=== PATIENT | female | born 1965 | race Caucasian/White ===

== ENCOUNTER 2018-05-02 12:57 | Emergency (ER) | payer SELFPAY ==
[~2018-05-02] VITALS: Wt 62.9 kg
[2018-05-02 13:18] VITALS: BP 118/68; PULSE 88; RESP 20
[2018-05-02] MEDS ORDERED: KETOROLAC 60 MG INJ IM STA (13:51)
[2018-05-02] MEDS ORDERED: NAPR-985 PO (13:54)
[2018-05-02] MEDS ORDERED: AMOX1TAB10 PO (13:54)
[2018-05-02] MEDS ORDERED: NPH10OT BOTH EARS (13:54)
--- NOTE | 2018-05-02 14:58 | ERD ---
ER Documentation Chief Complaint Chief Complaint bilat ear pain x5d; R>L. HPI 52 yr old female complaining of bilateral ear pain. Patient had bilateral ear pain. Patient states that she has been putting some [place] cream in her ear but does not recall the name of it. Denies any fevers. Yesterday took Tylenol but no known medication today. Has a mild runny nose and dry cough. Patient states she has been swimming a lot lately. Medical history back pain. Allergy to aspirin. Surgical history denies. Social history smokes 6 cigarettes a day. ROS All systems reviewed and are negative except as per history of present illness. Medications Home Meds Active Scripts Naproxen* (Naprosyn*) 500 Mg Tablet, 500 MG PO BID PRN for PAIN AND/OR INFLAMMATION, #30 TAB Prov:SOLEDAD ANTHONY PA-C 05/02/18 Amoxicillin/Potassium Clav (Amox-Clav 875-125 mg Tablet) 875-125 mg Tab, 1 TAB PO BID for 7 Days, #14 TAB Prov:SOLEDAD ANTHONY PA-C 05/02/18 Neomycin/Polymyxin/Hydrocort* (Cortisporin* Otic) 10 Ml Susp, 4 DROP BOTH EARS QID for 7 Days, EA Prov:SOLEDAD ANTHONY PA-C 05/02/18 Allergies Allergies: Coded Allergies: aspirin (Verified Allergy, Unknown, 05/02/18) PMhx/Soc Medical and Surgical Hx: pt denies Medical Hx, pt denies Surgical Hx Hx Alcohol Use: No Hx Substance Use: No Hx Tobacco Use: No Smoking Status: Never smoker FmHx Family History: No diabetes, No coronary disease, No other Physical Exam Vitals Vital Signs Date Temp Pulse Resp B/P (MAP) Pulse Ox O2 O2 Flow FiO2 Time Delivery Rate 05/02/18 97.7 88 20 118/68 98 13:18 (85) Physical Exam GENERAL: The patient is well-appearing, well-nourished, in no acute distress HEENT: Atraumatic. Conjunctivae are pink. Pupils equal, round, and reactive to light. There is no scleral icterus. Tympanic membranes clear bilaterally. Swelling to external ear canal. No mastoid tenderness. Oropharynx clear. CHEST: Clear to auscultation bilaterally. There are no rales, wheezes or rhonchi. HEART: Regular rate and rhythm. No murmurs, clicks, rubs or gallops. No S3 or S4. BACK: No midline or flank tenderness. Results 24 hrs Current Medications Medications Dose Sig/Leland Start Time Status Last (Trade) Ordered Route PRN Stop Time Admin Dose Reason Admin Ketorolac 60 mg ONCE STAT 05/02/18 DC 05/02/18 Tromethamine IM 13:51 13:59 (Toradol) 05/02/18 13:52 Procedures/MDM MDM: 52-year-old female presenting with ear pain. Patient has findings consist ent with otitis externa. I have low suspicion for mastoiditis. I have low suspicion for otitis media. Patient be discharged with oral medications as this has been going on for quite a while. Patient is told symptoms change or worsen to immediately return to ER. All questions answered at discharge Departure Diagnosis: Primary Impression: Otitis externa Condition: Stable Patient Instructions: External Ear Infection (Adult) Referrals: [facility] YOU HAVE RECEIVED A MEDICAL SCREENING EXAM AND THE RESULTS INDICATE THAT YOU DO NOT HAVE A CONDITION THAT REQUIRES URGENT TREATMENT IN THE EMERGENCY DEPARTMENT. FURTHER EVALUATION AND TREATMENT OF YOUR CONDITION CAN WAIT UNTIL YOU ARE SEEN IN YOUR DOCTORS OFFICE WITHIN THE NEXT 1-2 DAYS. IT IS YOUR RESPONSIBILITY TO MAKE AN APPOINTMENT FOR FOLOW-UP CARE. IF YOU HAVE A PRIMARY DOCTOR --you should call your primary doctor and schedule an appointment IF YOU DO NOT HAVE A PRIMARY DOCTOR YOU CAN CALL OUR PHYSICIAN REFERRAL HOTLINE AT IF YOU CAN NOT AFFORD TO SEE A PHYSICIAN YOU CAN CHOSE FROM THE FOLLOWING [facility] [address] [facility] [address] [facility] [address] [facility]. [facility] [address] [facility] [address] [facility]. [facility]. [address] Additional Instructions: FOLLOW UP WITH YOUR PRIMARY CARE PHYSICIAN TOMORROW.Return to this facility if you are not improving as expected. SOLEDAD ANTHONY PA-C May 02, 2018 14:58
[2018-05-03] MEDS ORDERED: NPH10OT BOTH EARS (19:23)
[2018-05-03] MEDS ORDERED: ACET1TAB40 PO (19:23)
== END 2018-05-02 14:10 | disposition home or self-care (01) ==
LOC: FTE 12:57
DX: H60.93 Unspecified otitis externa, bilateral (principal)
CPT/HCPCS: 96372; 99284; J1885

== ENCOUNTER 2018-05-03 17:53 | Emergency (ER) | payer MEDICAID ==
[~2018-05-03] VITALS: Ht 144.8 cm; Wt 63.0 kg
[~2018-05-03 17:53] MED LIST: AMOX1TAB10 PO; NAPR-985 PO; NPH10OT BOTH EARS
[2018-05-03 17:59] VITALS: Ht 144.8 cm; Wt 63.0 kg
[2018-05-03] MEDS ORDERED: CIPROFLOXACIN 500 MG TAB PO ONE (18:30)
[2018-05-03] MEDS ORDERED: HYDROCODONE/APAP (5/325) TAB PO ONE (18:30)
[2018-05-03] MEDS ORDERED: NPH10OT BOTH EARS (19:23)
[2018-05-03] MEDS ORDERED: ACET1TAB40 PO (19:23)
--- NOTE | 2018-05-03 19:26 | ERD ---
ER Documentation Chief Complaint Chief Complaint BILATERAL EAR PAIN X 7 DAYS HPI 52-year-old female presents with one-week history of bilateral ear pain and discharge. She was seen yesterday and prescribed amoxicillin but she states that she cannot afford the prescription. She denies fevers, vomiting, shortness of breath or chest pain. ROS All systems reviewed and are negative except as per history of present illness. Medications Home Meds Active Scripts Acetaminophen with Codeine (Acetaminophen-Cod #3 Tablet) 1 Each Tablet, 1 TAB PO Q6H PRN for PAIN, #10 TAB Prov:CHAPINCITO CHOE MD 05/03/18 Neomycin/Polymyxin/Hydrocort* (Cortisporin* Otic) 10 Ml Susp, 4 DROP BOTH EARS QID for 7 Days, EA Prov:CHAPINCITO CHOE MD 05/03/18 Naproxen* (Naprosyn*) 500 Mg Tablet, 500 MG PO BID PRN for PAIN AND/OR INFLAMMATION, #30 TAB Prov:SOLEDAD ANTHONY PA-C 05/02/18 Amoxicillin/Potassium Clav (Amox-Clav 875-125 mg Tablet) 875-125 mg Tab, 1 TAB PO BID for 7 Days, #14 TAB Prov:SOLEDAD ANTHONY PA-C 05/02/18 Neomycin/Polymyxin/Hydrocort* (Cortisporin* Otic) 10 Ml Susp, 4 DROP BOTH EARS QID for 7 Days, EA Prov:SOLEDAD ANTHONY PA-C 05/02/18 Allergies Allergies: Coded Allergies: aspirin (Verified Allergy, Unknown, 05/02/18) PMhx/Soc Medical and Surgical Hx: pt denies Medical Hx History of Surgery: Yes (OPEN HEART SX) Anesthesia Reaction: No Hx Neurological Disorder: No Hx Respiratory Disorders: No Hx Cardiac Disorders: No Hx Psychiatric Problems: No Hx Miscellaneous Medical Probl: No Hx Alcohol Use: No Hx Substance Use: No Hx Tobacco Use: No Smoking Status: Former smoker FmHx Family History: No diabetes, No coronary disease, No other Physical Exam Vitals Vital Signs Date Temp Pulse Resp B/P (MAP) Pulse Ox O2 O2 Flow FiO2 Time Delivery Rate 05/03/18 99.9 97 18 125/72 99 17:59 (89) Physical Exam Const: No acute distress Head: Atraumatic Eyes: Normal Conjunctiva ENT: Normal External Ears, Nose and Mouth. Decreased diameter bilateral external auditory canals. TMs visible normal behind the swelling. Pain with passive range of motion of the bilateral external ears. No mastoid tenderness or external erythema, warmth, induration. Neck: Full range of motion. No meningismus. Resp: Clear to auscultation bilaterally Cardio: Regular rate and rhythm, no murmurs Abd: Soft, non tender, non distended. Normal bowel sounds Skin: No petechiae or rashes Back: No midline or flank tenderness Ext: No cyanosis, or edema Neur: Awake and alert Psych: Normal Mood and Affect Results 24 hrs Current Medications Medications Dose Sig/Leland Start Time Status Last (Trade) Ordered Route PRN Stop Time Admin Dose Reason Admin 1 tab ONCE ONCE 05/03/18 DC 05/03/18 Acetaminophen PO 18:30 18:46 / 05/03/18 18:31 Hydrocodone Bitart ([place] (5/325)) 10 drop BID BOTH 05/03/18 Ciprofloxacin EARS 21:00 HCl (Ciprofloxaci n HCl Otic) 500 mg ONCE ONCE 05/03/18 DC 05/03/18 Ciprofloxacin PO 18:30 18:45 (Cipro) 05/03/18 18:31 Procedures/MDM Patient presents with bilateral otitis externa. She was administered Cipro eardrops here but will be given a prescription for Cortisporin and Tylenol No. 3. She is given Cipro 500 mg by mouth as well due to risk of noncompliance with following prescriptions. Patient was advised on following through with outpatient treatment and filling prescriptions. Is no evidence of malignant otitis externa, facial cellulitis, mastoiditis. The patient was stable with no new complaints during the ER course. Clinically, there is no current evidence to suggest meningitis, sepsis, acute abdomen, pneumonia, stroke, acute coronary syndrome, pulmonary embolism, aortic dissection or any other emergent condition appearing to require further evaluation or hospitalization. Patient counseled regarding my diagnostic impression and care plan. Prior to discharge all questions answered. Pt agrees with treatment plan and understands strict return precautions. Pt is instructed to follow up with primary care provider within 24- 48 hours. Precautionary instructions provided including instructions to return to the ER if not improving or for any worsening or changing symptoms or concerns. Departure Diagnosis: Primary Impression: Otitis externa Otitis externa type: unspecified type Chronicity: acute Laterality: bilateral Qualified Codes: H60.503 - Unspecified acute noninfective otitis externa, bilateral Condition: Stable Patient Instructions: External Ear Infection (Adult) Referrals: NO PRIMARY,CARE PHYSICIAN (PCP) Additional Instructions: Cheque otro vez con benito doctor primario en el proximo victor or regresa para mas o nueva simptomas. CHAPINCITO CHOE MD May 03, 2018 19:26
[2018-05-03 19:48] VITALS: BP 105/68; PULSE 86; RESP 20
[2018-05-03] MEDS ORDERED: CIPROFLOXACIN HCL OTIC DROP 0.25 ML BOTH EARS SCH (21:00)
== END 2018-05-03 19:50 | disposition home or self-care (01) ==
LOC: FTE 17:53
DX: H60.503 Unspecified acute noninfective otitis externa, bilateral (principal)
CPT/HCPCS: Z7502; Z7610; 99283

== ENCOUNTER 2018-05-21 19:33 | Emergency (ER) | payer MEDICAID, OTHER ==
[~2018-05-21] VITALS: Wt 63.2 kg
[~2018-05-21 19:33] MED LIST changes: +ACET1TAB40 PO
[2018-05-21 19:40] VITALS: BP 118/72; PULSE 99; RESP 18
[2018-05-21] MEDS ORDERED: LEVO750T25 PO ×3 (20:34→21:00)
--- NOTE | 2018-05-21 21:06 | ERD ---
ER Documentation Chief Complaint Chief Complaint FEVER, DYSURIA X'S 2 DAYS HPI 52-year-old female history of cigarette smoking presents to the emergency department complaining of painful urination for the past 2 days. Patient denies any flank pain. She states that she also has a cough and sore throat. Admits to having fevers at home. Denies taking any medications. Denies any nausea vomiting shortness of breath or chest pain ROS All systems reviewed and are negative except as per history of present illness. Medications Home Meds Active Scripts Levofloxacin* (Levaquin*) 750 Mg Tablet, 750 MG PO DAILY for 5 Days, TAB Prov:DEMI GILBERT PA-C 05/21/18 Levofloxacin* (Levaquin*) 750 Mg Tablet, 750 MG PO DAILY for 5 Days, TAB Prov:DEMI GILBERTC 05/21/18 Acetaminophen with Codeine (Acetaminophen-Cod #3 Tablet) 1 Each Tablet, 1 TAB PO Q6H PRN for PAIN, #10 TAB Prov:CHAPINCITO CHOE MD 05/03/18 Neomycin/Polymyxin/Hydrocort* (Cortisporin* Otic) 10 Ml Susp, 4 DROP BOTH EARS QID for 7 Days, EA Prov:CHAPINCITO CHOE MD 05/03/18 Naproxen* (Naprosyn*) 500 Mg Tablet, 500 MG PO BID PRN for PAIN AND/OR INFLAMMATION, #30 TAB Prov:SOLEDAD ANTHONY PA-C 05/02/18 Amoxicillin/Potassium Clav (Amox-Clav 875-125 mg Tablet) 875-125 mg Tab, 1 TAB PO BID for 7 Days, #14 TAB Prov:SOLEDAD ANTHONY PA-C 05/02/18 Neomycin/Polymyxin/Hydrocort* (Cortisporin* Otic) 10 Ml Susp, 4 DROP BOTH EARS QID for 7 Days, EA Prov:SOLEDAD ANTHONY PA-C 05/02/18 Allergies Allergies: Coded Allergies: aspirin (Verified Allergy, Unknown, 05/02/18) PMhx/Soc History of Surgery: Yes (Open Heart Surg) Anesthesia Reaction: No Hx Neurological Disorder: No Hx Respiratory Disorders: No Hx Cardiac Disorders: No Hx Psychiatric Problems: No Hx Miscellaneous Medical Probl: No Hx Alcohol Use: No Hx Substance Use: No Hx Tobacco Use: Yes (5 sticks/day) Smoking Status: Current every day smoker Physical Exam Vitals Vital Signs Date Temp Pulse Resp B/P (MAP) Pulse Ox O2 O2 Flow FiO2 Time Delivery Rate 05/21/18 97.6 99 18 118/72 97 19:40 (87) Physical Exam General: well-developed/well-nourished, in no apparent distress, non-toxic appearing HENT: NC/AT, no erythematous oropharynx no tonsillar exudates airways intact Eyes: Conjunctiva normal Neck: Supple, no lymphadenopathy Pulm: CTA bilaterally, normal breathing CV: Normal S1S2 GI: Soft, non-distended, normal bowel sounds, TTP on suprapubic region Back: No midline tenderness, no masses, No CVAT Ext: No clubbing, cyanosis, or edema Neuro: Alert and orientated Skin: intact, normal turgor Psych: Normal mood and mentation Results 24 hrs Laboratory Tests Test 05/21/18 20:22 Bedside Urine pH (LAB) 5.5 Bedside Urine Protein (LAB) 2+ Bedside Urine Glucose (UA) Negative Bedside Urine Ketones (LAB) Negative Bedside Urine Blood 2+ Bedside Urine Nitrite (LAB) Positive Bedside Urine Leukocyte Esterase (L Trace Procedures/MDM 52-year-old female presents signs and symptoms consistent with a urinary tract infection low suspicion for pyelonephritis, nephrolithiasis, ovarian torsion due to physical examination and diagnostic testing. Also complains of signs of consistent with a viral upper respiratory infection hemodynamically stable for discharge. Prescriptions Levaquin 700 mg for 5 days have been given to take as directed. Strict precautions were given to return to the ER if not improving as expected or for any worsening signs and symptoms Departure Diagnosis: Primary Impression: UTI (urinary tract infection) Additional Impression: URI (upper respiratory infection) Condition: Stable Patient Instructions: Understanding Urinary Tract Infections (UTIs) Additional Instructions: Visite a benito cristofer villaseñor para un EXAMEN.Regrese a estas instalaciones si no se mejora jeet esperbamos o jeet le dijimos. [place] toda la medicina elpidio y jeet se le indic. Regrese a estas instalaciones si no se mejora jeet esperbamos o jeet le dijimos. DEMI GILBERT PA-C May 21, 2018 21:06
== END 2018-05-21 21:06 | disposition home or self-care (01) ==
LOC: FTE 19:33
DX: N39.0 Urinary tract infection, site not specified (principal); J06.9 Acute upper respiratory infection, unspecified; F17.210 Nicotine dependence, cigarettes, uncomplicated
CPT/HCPCS: 81001; 81003; 87086; 99283

== ENCOUNTER 2018-07-08 11:27 | Emergency (ER) | payer OTHER ==
[~2018-07-08] VITALS: Ht 157.5 cm; Wt 68.2 kg
[~2018-07-08 11:27] MED LIST changes: +LEVO750T25 PO
[2018-07-08 11:42] VITALS: Ht 157.5 cm; Wt 68.2 kg
[2018-07-08] MEDS ORDERED: SOD CHLORIDE 0.9% 1,000 ML IV STA (12:01)
--- NOTE | 2018-07-08 12:05 | ERD ---
ER Documentation Chief Complaint Chief Complaint FOUND PASSED OUT AT [facility]. PINPOINT PUPILS ON SCENE. GIVEN NARCAN HPI This is a 52-year-old female who stated that she passed out 3 times prior to arrival. She said after the second time when she woke up she had tingling and weakness to the left side of her face arm and leg. The patient says she was walking with her boyfriend when she developed some chest pain and passed out. She said he woke her up and they continued walking and went to a nearby [facility] where she passed out 2 times again. EMS reports the patient had pinpoint pupils and she was given Narcan and she woke up. The patient denies any drug use whatsoever or alcohol use. 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 She states she had a mild occipital headache earlier but not now. Patient did ambulate to the bathroom here. No speech or visual changes. She approximates the time of onset of neurological symptoms at 11:30 AM ROS All systems reviewed and are negative except as per history of present illness. Medications Home Meds Active Scripts Levofloxacin* (Levaquin*) 750 Mg Tablet, 750 MG PO DAILY for 5 Days, TAB Prov:DEMI GILBERT PA-C 05/21/18 Levofloxacin* (Levaquin*) 750 Mg Tablet, 750 MG PO DAILY for 5 Days, TAB Prov:DEIM GILBERTC 05/21/18 Acetaminophen with Codeine (Acetaminophen-Cod #3 Tablet) 1 Each Tablet, 1 TAB PO Q6H PRN for PAIN, #10 TAB Prov:CHAPINCITO CHOE MD 05/03/18 Neomycin/Polymyxin/Hydrocort* (Cortisporin* Otic) 10 Ml Susp, 4 DROP BOTH EARS QID for 7 Days, EA Prov:CHAPINCITO CHOE MD 05/03/18 Naproxen* (Naprosyn*) 500 Mg Tablet, 500 MG PO BID PRN for PAIN AND/OR INFLAMMATION, #30 TAB Prov:SOLEDAD ANTHONYC 05/02/18 Amoxicillin/Potassium Clav (Amox-Clav 875-125 mg Tablet) 875-125 mg Tab, 1 TAB PO BID for 7 Days, #14 TAB Prov:SOLEDAD ANTHONY PA-C 05/02/18 Neomycin/Polymyxin/Hydrocort* (Cortisporin* Otic) 10 Ml Susp, 4 DROP BOTH EARS QID for 7 Days, EA Prov:SOLEDAD ANTHONY PA-C 05/02/18 Allergies Allergies: Coded Allergies: aspirin (Verified Allergy, Unknown, 05/02/18) PMhx/Soc History of Surgery: Yes (Open Heart Surg) Anesthesia Reaction: No Hx Neurological Disorder: No Hx Respiratory Disorders: No Hx Cardiac Disorders: No Hx Psychiatric Problems: No Hx Miscellaneous Medical Probl: No Hx Alcohol Use: No Hx Substance Use: No Hx Tobacco Use: Yes (5 sticks/day) FmHx Family History: No coronary disease Physical Exam Vitals Vital Signs Date Temp Pulse Resp B/P (MAP) Pulse Ox O2 O2 Flow FiO2 Time Delivery Rate 07/08/18 Nasal 2 12:33 Cannula 07/08/18 97.8 54 16 113/79 100 Room Air 12:31 (90) 07/08/18 99.0 68 16 111/70 96 11:42 (84) Physical Exam Const: Well-developed, well-nourished Head: Atraumatic, normocephalic Eyes: Normal Conjunctiva, PERRLA, EOMI, normal sclera, no nystagmus ENT: Normal External Ears, Nose and Mouth, moist mucus membranes. Neck: Full range of motion. No meningismus, no lymphadenopathy. Resp: Clear to auscultation bilaterally, no wheezing, rhonchi, rales Cardio: Regular rate and rhythm, no murmurs, S1 S2 present Abd: Soft, non tender x 4, non distended. Normal bowel sounds, no guarding or rebound, no pulsitile abdominal masses or bruits Skin: No petechiae or rashes, no ecchymosis , no maculopapular rash Back: No midline or flank tenderness Ext: No cyanosis, or edema, FROM x 4, normal inspection, neurovascularly intact x 4 Neur: Awake and alert, subjective decreased sensation to the left face arm and leg, bilateral lower extremity heaviness she says the left is greater than right, subjective left arm heaviness cerebellum intact Psych: Normal Mood and Affect Result Diagram: 07/08/18 1215 Results 24 hrs Laboratory Tests Test 07/08/18 11:50 07/08/18 11:57 07/08/18 12:15 Urine Color STRAW Urine Clarity CLEAR Urine pH 7.0 Urine Specific Sylva 1.004 Urine Ketones NEGATIVE mg/dL Urine Nitrite NEGATIVE mg/dL Urine Bilirubin NEGATIVE mg/dL Urine Urobilinogen NEGATIVE mg/dL Urine Leukocyte Esterase NEGATIVE Sincere/ul Urine Hemoglobin NEGATIVE mg/dL Urine Glucose NEGATIVE mg/dL Urine Total Protein NEGATIVE mg/dl Urine Opiates Screen Negative Urine Barbiturates Negative Urine Amphetamines Screen Negative Urine Benzodiazepines Screen Negative Urine Cocaine Screen Negative Urine Cannabinoids Negative POC Beta HCG, Qualitative NEGATIVE White Blood Count 9.1 10^3/ul Red Blood Count 4.51 10^6/ul Hemoglobin 13.8 g/dl Hematocrit 39.4 % Mean Corpuscular Volume 87.4 fl Mean Corpuscular Hemoglobin 30.6 pg Mean Corpuscular 35.0 g/dl Hemoglobin Concent Red Cell Distribution Width 12.4 % Platelet Count 240 10^3/UL Mean Platelet Volume 11.3 fl Immature Granulocytes % 0.300 % Neutrophils % 63.3 % Lymphocytes % 28.1 % Monocytes % 6.3 % Eosinophils % 1.0 % Basophils % 1.0 % Nucleated Red Blood Cells % 0.0 /100WBC Immature Granulocytes # 0.030 10^3/ul Neutrophils # 5.8 10^3/ul Lymphocytes # 2.6 10^3/ul Monocytes # 0.6 10^3/ul Eosinophils # 0.1 10^3/ul Basophils # 0.1 10^3/ul Nucleated Red Blood Cells # 0.0 10^3/ul Prothrombin Time 11.9 Sec Prothrombin Time Ratio 0.9 INR International 0.87 Normalized Ratio Activated Partial Thromboplast 27.2 Sec Time Hemoglobin A1c 5.6 % Current Medications Medications Dose Sig/Leland Start Time Status Last (Trade) Ordered Route PRN Stop Time Admin Dose Reason Admin Sodium 1,000 ml @ Q1H STAT 07/08/18 07/08/18 Chloride 1,000 mls/hr IV 12:01 12:30 07/08/18 13:00 IV Flush 10 ml STK-MED 07/08/18 DC (NS 10 ml) ONCE .ROUTE 12:27 07/08/18 12:28 Sodium 100 ml @ ud STK-MED 07/08/18 DC Chloride ONCE .ROUTE 12:27 07/08/18 12:28 Iodixanol 100 ml STK-MED 07/08/18 DC (Visipaque ONCE .ROUTE 12:27 Locm) 07/08/18 12:28 Procedures/MDM MR #: [id number] DOS: 07/08/18 1201 Ordering MD: ÁNGEL MISHRA DO Location: E/R Room/Bed: PROCEDURE: CT Brain without contrast. CLINICAL INDICATION: Left-sided face arm and leg tingling and weakness TECHNIQUE: A CT of the brain was performed on a NCTechpeNuji 64-slice CT scanner utilizing axial imaging from the skull base through the vertex without IV contrast. Multiplanar reformatted images were made. Images were reviewed on a PACS workstation. The CTDIvol is 48.0 a mGy and the DLP is 798.67 mGycm. One or more the following dose reduction techniques were utilized: Automated exposure control, adjustment of mA/ or kV according to patient's size, or use of iterative reconstruction technique. DICOM images are available for review. COMPARISON: None FINDINGS: There is no intracranial hemorrhage, mass effect, or midline shift. The ventricles and sulci are normal in size and configuration. The density of the brain is normal. There is good martin-white matter differentiation throughout the cerebral hemispheres. The visualized brainstem and cerebellum are unremarkable. No extra-axial fluid collection is seen. The visualized paranasal sinuses and osseous structures are grossly unremarkable. IMPRESSION: No evidence of acute intracranial pathology. The brain is normal in appearance. The findings were discussed with Dr. Mishra of the emergency room department at 12:15 p.m.. RPTAT: HH Physician Curtis Date Time Electronically viewed and signed by Physician Curtis on 07/08/2018 12:18 RL/ CC: ÁNGEL MISHRA DO [id number] Ordering MD: ÁNGEL MISHRA DO Location: E/R Room/Bed: PROCEDURE: XR Chest AP portable CLINICAL INDICATION: Stroke symptoms TECHNIQUE: An AP portable radiograph of the chest was submitted. COMPARISON: None. FINDINGS: Support Hardware: None Cardiovascular: There has been a previous sternotomy. The cardiovascular silhouette appears normal. Lung Rivera: The lung rivera appear clear with no nodule, alveolar infiltrate, or interstitial prominence evident. Pleural Spaces: No pneumothorax or pleural effusion is identified. Osseous Structures: The osseous structures appear intact. Soft Tissues: The soft tissues appear unremarkable. IMPRESSION: 1. Previous sternotomy. 2. Otherwise, unremarkable portable chest without evidence of active cardiopulmonary disease. Physician Laurence Date Time Electronically viewed and signed by Obi Jimenez Physician on 07/08/2018 12:24 RH/ CC: ÁNGEL MISHRA DO [id number] EKG: Rate/Rhythm: Normal Sinus Rhythm,NL intervals QRS, ST, QT: NORMAL OH, QRS, QT] Impression: NORMAL EKG The patient was seen by the telemetry neurologist who recommends that we cancel the CT angiogram and do an inpatient workup. The patient has a very low NIH s core and the patient states that her symptoms are not life debilitating, therefore no TPA will be administered. Will admit for inpatient workup The patient's drug screen is negative possible that she did use some narcotics and has not shown up in her urine yet however she denies adamantly that she does drugs or drink. Departure Diagnosis: Primary Impression: Syncope Syncope type: unspecified Qualified Codes: R55 - Syncope and collapse Additional Impressions: CVA (cerebral vascular accident) CVA mechanism: unspecified Qualified Codes: I63.9 - Cerebral infarction, unspecified Chest pain Chest pain type: unspecified Qualified Codes: R07.9 - Chest pain, unspecified Condition: Stable ÁNGEL MISHRA DO Jul 08, 2018 12:05
[2018-07-08] MEDS ORDERED: SOD CHLORIDE 0.9% 100 ML ONE (12:27)
[2018-07-08] MEDS ORDERED: IODIXANOL LOCM 100 ML BTL ONE (12:27)
--- NOTE | 2018-07-08 13:22 | STROKE ---
Date/Time of Note Date/Time of Note DATE: 07/08/18 TIME: 15:16 Patient Information General Patient location: emergency Arrival Date Onset Time: 11:30 Age 52 Gender female Weight 68.18 kg Clinical Presentation Pt interviewed and examined with assist from clinic mgr. 52 y/o F PMH "hole in heart' in [place] this morning until had sudden chest pressure then syncopal episode x3. No sz type activity. Narcan on scene. At 1130 c/o left F, A, L numbness. Denies headache, dizziness, vision or speech change Vital Signs Vital Signs Vital Signs Date Temp Pulse Resp B/P (MAP) Pulse Ox O2 O2 Flow FiO2 Time Delivery Rate 07/08/18 Nasal 2 12:33 Cannula 07/08/18 97.8 54 16 113/79 100 12:31 (90) Patient History Current Medications Allergies: Coded Allergies: aspirin (Verified Allergy, Unknown, 05/02/18) Labs Coagulation Labs: Coagulation Test 07/08/18 12:15 Activated Partial Thromboplast Time 27.2 Sec (23.0-35.0) NIH Stroke Scale NIH Stroke Scale [id number] Date/Time Recorded DATE: 07/08/18 TIME: 15:16 Submitted By Damari Dempsey t-PA Imaging Review Date/Time Imaging Reviewed DATE: 07/08/18 TIME: 15:16 t-PA Administration Weight 68.18 kg Recommedation submitted by DAMARI Perera MD Jul 08, 2018 13:22
[2018-07-08 18:50] VITALS: BP 105/81; PULSE 60; RESP 18
== END 2018-07-08 18:49 | disposition short-term general hospital (02) ==
LOC: E/R 11:27
DX: I63.9 Cerebral infarction, unspecified (principal); R55 Syncope and collapse; R07.9 Chest pain, unspecified; Z87.891 Personal history of nicotine dependence
CPT/HCPCS: 36415; 70450; 71045; 80048; 80061; 80307; 81003; 81025; 82550; 82553; 83036; 84484; 85025; 85610; 85730; 93005; 96360; J7030; Q9967; Z7502; Z7610

== ENCOUNTER 2018-12-26 12:34 | Emergency (ER) | payer OTHER ==
[~2018-12-26] VITALS: Ht 152.4 cm; Wt 64.9 kg
[~2018-12-26 12:34] MED LIST changes: -ACET1TAB40 PO; -AMOX1TAB10 PO; -LEVO750T25 PO; -NAPR-985 PO; -NPH10OT BOTH EARS; +RANI150T35 PO
[2018-12-26 12:40] VITALS: Ht 152.4 cm; Wt 64.9 kg
[2018-12-26] MEDS ORDERED: SOD CHLORIDE 0.9% 1,000 ML IV STA (14:31)
[2018-12-26] MEDS ORDERED: FAMOTIDINE 20 MG INJ IV STA (16:40)
[2018-12-26] MEDS ORDERED: LIDOCAINE/MYLANTA 40 ML BTL PO STA (16:40)
[2018-12-26] MEDS ORDERED: SOD CHLORIDE 0.9% 100 ML ONE (17:27)
[2018-12-26] MEDS ORDERED: IOHEXOL 300MG/ML 150 ML BTL ONE (17:27)
[2018-12-26 19:45] VITALS: BP 115/77; PULSE 59; RESP 20
== END 2018-12-26 19:47 | disposition home or self-care (01) ==
LOC: E/R 12:34
DX: R10.12 Left upper quadrant pain (principal); F17.210 Nicotine dependence, cigarettes, uncomplicated
CPT/HCPCS: 36415; 74177; 80053; 81003; 81025; 83605; 83690; 84484; 85025; 93005; 96374; J7030; Q9967; Z7502; Z7610

== ENCOUNTER 2019-02-17 14:19 | Emergency (ER) | payer OTHER ==
[~2019-02-17] VITALS: Ht 152.4 cm; Wt 65.7 kg
[~2019-02-17 14:19] MED LIST changes: +CYCL10TA7 PO; +HYDR-4011 PO; +MED4DP PO; +NAPR-985 PO; +RANI-535 PO; -RANI150T35 PO
[2019-02-17 14:29] VITALS: BP 104/51; PULSE 67; RESP 16; Ht 152.4 cm; Wt 65.7 kg
[2019-02-17] MEDS ORDERED: KETOROLAC 60 MG INJ IM STA (15:08)
[2019-02-17] MEDS ORDERED: DEXAMETHASONE 10 MG/ML 1 ML INJ IM ONE (15:30)
== END 2019-02-17 15:45 | disposition home or self-care (01) ==
LOC: FTE 14:19
DX: M54.5 Low back pain (principal); Z87.891 Personal history of nicotine dependence
CPT/HCPCS: 81025; 96372; J1100; J1885; Z7502